=== PATIENT | female | born 1990 | race Caucasian/White ===

== ENCOUNTER 2023-01-09 19:17 | Emergency (ER) | payer OTHER, SELFPAY ==
[2023-01-09 19:29] VITALS: BP 145/100; PULSE 98; RESP 18; TEMP 36.7; O2SAT 98; BMI 44.2
--- NOTE | 2023-01-09 19:35 | ED.GENADULT ---
HPI - General Adult General Chief complaint: Post Op Complication Stated complaint: Likely infection post op R arm Time Seen by Provider: 01/09/23 19:21 Source: patient Mode of arrival: ambulatory Limitations: no limitations History of Present Illness HPI narrative: 32-year-old female coming in today on postop day number 4 status post lipoma removals of several spots in her body, complaining of increasing redness and discomfort on the postop site of the right arm. She denies any systemic symptoms. States that she noticed that the area started getting red and warm to touch over the last 2 days. No issues with her other incisions. Patient is currently taking a postop stool softener and ibuprofen. Related Data Previous Rx's Medication Instructions Recorded cefadroxil 500 mg capsule 500 mg PO BID #10 caps 01/09/23 cefadroxil 500 mg capsule 500 mg PO BID 7 days #14 caps 01/09/23 Allergies Allergy/AdvReac Type Severity Reaction Status Date / Time sumatriptan [From Imitrex] Allergy Severe Verified 01/09/23 19:34 ketorolac [From Toradol] AdvReac Severe Verified 01/09/23 19:34 metronidazole [From Flagyl] AdvReac Severe Verified 01/09/23 19:34 Review of Systems Status of ROS: Reports: 10 or more systems reviewed and unremarkable except as noted in History and below Exam Narrative: Exam Narrative: Well-nourished well-developed patient in no acute distress. Alert and oriented. Answers questions appropriately. Mood and affect are appropriate. Thoughts are goal oriented and rational. No tangential or magical thinking noted. Patient speaks in full sentences without needing to catch her breath. HEENT: Normocephalic atraumatic. Pupils are equally round reactive to light. Extraocular muscles are intact. Conjunctivae are moist without any icterus noted. Moist mucous membranes. Skin: Well perfused, warm and dry. Patient has 2 incisions on the abdomen in flank and 1 on her back they are bruised but appear to be healing appropriately. The incision on the right upper arm has surrounding erythema: About 3 cm in diameter, skin is hot to touch and indurated. There is no drainage or areas of fluctuance. Const: Vital Signs, click to edit/add: Vital Signs - 24 hr 01/09/23 19:29 Temperature 98.0 F Pulse Rate [Right Pulse Oximeter] 98 Respiratory Rate 18 Blood Pressure [Ri ght Upper Arm] 145/100 H Pulse Oximetry 98 Oxygen Delivery Me thod Room Air Course Vital Signs Vital signs: Initial Vital Signs Temperature 98.0 F 01/09/23 19:29 Temperature Source Temporal Artery Scan 01/09/23 19:29 Pulse Rate 98 01/09/23 19:29 Pulse Rhythm Regular 01/09/23 19:29 Pulse Strength 3+ Normal 01/09/23 19:29 Respiratory Rate 18 01/09/23 19:29 Blood Pressure 145/100 H 01/09/23 19:29 Blood Pressure Mean 115 H 01/09/23 19:29 Blood Pressure Position Supine 01/09/23 19:29 Pulse Oximetry 98 01/09/23 19:29 Oxygen Delivery Method Room Air 01/09/23 19:29 Vital Signs Temperature 98.0 F 01/09/23 19:29 Pulse Rate 98 01/09/23 19:29 Respiratory Rate 18 01/09/23 19:29 Blood Pressure 145/100 H 01/09/23 19:29 Pulse Oximetry 98 01/09/23 19:29 Oxygen Delivery Method Room Air 01/09/23 19:29 Temperature 98.0 F 01/09/23 19:29 Pulse Rate 98 01/09/23 19:29 Respiratory Rate 18 01/09/23 19:29 Blood Pressure 145/100 H 01/09/23 19:29 Pulse Oximetry 98 01/09/23 19:29 Oxygen Delivery Method Room Air 01/09/23 19:29 Medical Decision Making MDM Narrative Medical decision making narrative: 32-year-old female with cellulitis of a surgical incision status post lipoma removal. Will treat with Keflex. We outlined it in the ER today to keep an eye on it. Recommend she follow up with primary care provider in the next 3 or 4 days. Patient was in agreement had no other questions. return to the ER if redness is increasing instead of going down. Discharge Plan Discharge Clinical Impression: Cellulitis Patient Disposition: Home, Self-Care Condition: Stable Additional Instructions: Take all antibiotics as prescribed for a total of 5 days. Return to the ER if the redness is going beyond the drawn borders in the next 48 hours despite antibiotic treatment. Follow-up with your surgeon or primary care provider in the next 3-4 days. Prescriptions: New cefadroxil 500 mg capsule 500 mg PO BID 7 Days Qty: 14 0RF cefadroxil 500 mg capsule 500 mg PO BID Qty: 10 0RF Follow Up/Referrals: Rodney Hernandez MD [Primary Care Provider] - Stand Alone Forms: [employer] Info Instructions
== END 2023-01-09 19:56 | disposition home or self-care (01) ==
PROVIDERS: Emergency Provider Family Medicine; PCP Family Medicine
DX: L03.312 Cellulitis of back [any part except buttock and flank] (principal); L03.311 Cellulitis of abdominal wall
CPT/HCPCS: 99283; 99284